=== PATIENT | female | born 2000 | race Hispanic/Latino ===

== ENCOUNTER 2022-08-24 10:54 | Inpatient (IN) | payer MEDICAID ==
[~2022-08-24] VITALS: Ht 154.9 cm; Wt 72.3 kg
[2022-08-24 11:33] LABS: BASOPHILS % (AUTO) 0.5 % (0.0-5.0); EOSINOPHILS % (AUTO) 1.2 % (0.0-8.0); HEMATOCRIT 40.2 % (36-48); LYMPHOCYTES % (AUTO) 8.6 % (21.0-51.0); MEAN CORPUSCULAR HEMOGLOBIN 27.2 pg (27.0-33.0); MEAN CORPUSCULAR HGB CONC 33.6 g/dL (32.0-36.0); MONOCYTES % (AUTO) 6.9 % (3.0-13.0); NEUTROPHILS % (AUTO) 82.6 % (40.0-77.0); PLATELET COUNT (AUTO) 213 K/uL (130-400); RED BLOOD CELL COUNT(AUTO) 4.96 MIL/uL (4.00-5.50); RED CELL DISTRIBUTION WIDTH 18.8 % (11.0-15.5); WHITE BLOOD COUNT (AUTO) 5.8 K/uL (4.8-10.8)
[2022-08-24 11:42] LABS: CREATININE 0.8 mg/dL (0.5-1.5)
[2022-08-24 11:43] LABS: INR 1.52 (0.85-1.15); PROTHROMBIN TIME 16.2 SEC (9.6-11.6)
[2022-08-24 11:44] LABS: PARTIAL THROMBOPLASTIN TIME 28.2 SEC (26.3-35.5)
[2022-08-24 11:49] LABS: ALBUMIN 3.5 g/dL (3.5-5.0); TOTAL PROTEIN, SERUM 6.8 g/dL (6.0-8.3)
[2022-08-24] MEDS ORDERED: METOPROLOL TARTRATE 1 MG/ML 5ML VIAL IV ONE ×3 (12:00→13:30)
[2022-08-24] MEDS ORDERED: ACETAMINOPHEN 500 MG TABLET ONE (12:45)
[2022-08-24] MEDS ORDERED: ACETAMINOPHEN 500 MG TABLET PO ONE (13:00)
[2022-08-24] MEDS ORDERED: POTASSIUM CHLORIDE 20MEQ/100ML 100 ML IV PRN (14:00)
[2022-08-24] MEDS ORDERED: LACTULOSE 20 GM/30 ML UDCUP PO PRN (14:00)
[2022-08-24] MEDS ORDERED: METOPROLOL TARTRATE 50 MG TAB PO ONE (14:00)
[2022-08-24] MEDS ORDERED: NITROGLYCERIN 0.4 MG SL TAB SL PRN (14:00)
[2022-08-24] MEDS ORDERED: LIDOCAINE HCL-MPF 1% 2ML VIAL IV PRN (14:00)
[2022-08-24] MEDS ORDERED: GUAIFENESIN-DM 200/20 MG 10 ML PO PRN (14:00)
[2022-08-24] MEDS ORDERED: DiphenhydrAMINE HCL 50 MG/ML VIAL IV PRN (14:00)
[2022-08-24] MEDS ORDERED: ONDANSETRON 4MG INJ IV PRN (14:00)
[2022-08-24] MEDS ORDERED: DIPHENHYDRAMINE HCL 25 MG CAPSULE PO PRN (14:00)
[2022-08-24] MEDS ORDERED: POTASSIUM CHLORIDE 10% ELIXIR 20 MEQ/15 ML UDCUP PO PRN (14:00)
[2022-08-24] MEDS ORDERED: MAG/ALUM/SIMETH 30 ML UDCUP PO PRN (14:00)
[2022-08-24] MEDS ORDERED: ACETAMINOPHEN 325 MG TAB PO PRN ×2 (14:00)
[2022-08-24] MEDS ORDERED: POTASSIUM BICARB/CIT AC 25 MEQ TABLET.EFF PO ONE (14:00)
[2022-08-24] MEDS: MAGNESIUM 2GM PREMIX 50ML 50 ML IV PRN (14:40)
[2022-08-24] MEDS ORDERED: SOTA120T PO (17:04)
[2022-08-24] MEDS ORDERED: GUAN1TAB29 PO (17:04)
[2022-08-24] MEDS ORDERED: FERR-72 PO (17:04)
[2022-08-24] MEDS ORDERED: WARF3TAB59 PO (17:04)
[2022-08-24] MEDS ORDERED: NORE5TAB7 PO (17:04)
[2022-08-24] MEDS: METOPROLOL TARTRATE 25 MG TAB PO SCH (20:35)
[2022-08-24] MEDS: SOTALOL HCL 80 MG TABLET PO SCH (20:35)
[2022-08-24] MEDS: FAMOTIDINE 20MG TAB PO SCH (20:35)
[2022-08-24] MEDS ORDERED: FAMOTIDINE 20MG VIAL IV PRN (21:00)
[2022-08-25] VITALS (7 sets, daily range): BP systolic 104–166; BP diastolic 56–89
[2022-08-25 05:52] LABS: BASOPHILS % (AUTO) 0.5 % (0.0-5.0); EOSINOPHILS % (AUTO) 1.6 % (0.0-8.0); HEMATOCRIT 38.5 % (36-48); LYMPHOCYTES % (AUTO) 30.2 % (21.0-51.0); MEAN CORPUSCULAR HEMOGLOBIN 27.2 pg (27.0-33.0); MEAN CORPUSCULAR HGB CONC 32.7 g/dL (32.0-36.0); MONOCYTES % (AUTO) 15.7 % (3.0-13.0); NEUTROPHILS % (AUTO) 51.7 % (40.0-77.0); PLATELET COUNT (AUTO) 230 K/uL (130-400); RED BLOOD CELL COUNT(AUTO) 4.64 MIL/uL (4.00-5.50); RED CELL DISTRIBUTION WIDTH 19.5 % (11.0-15.5); WHITE BLOOD COUNT (AUTO) 3.8 K/uL (4.8-10.8)
[2022-08-25 06:14] LABS: CREATININE 0.7 mg/dL (0.5-1.5); MAGNESIUM 2.1 mg/dL (1.80-2.40); PHOSPHORUS 3.8 mg/dL (2.5-4.9); POTASSIUM 3.9 mmol/L (3.5-5.1)
[2022-08-25] MEDS: METOPROLOL TARTRATE 25 MG TAB PO SCH ×2 (08:37→20:36)
[2022-08-25] MEDS: FAMOTIDINE 20MG TAB PO SCH ×2 (08:37→20:35)
[2022-08-25] MEDS: SOTALOL HCL 80 MG TABLET PO SCH ×3 (08:38→20:36)
[2022-08-25] MEDS ORDERED: ENOXAPARIN SODIUM 30 MG/0.3 ML SQ SCH (09:00)
[2022-08-25] MEDS ORDERED: ENOXAPARIN SODIUM 80 MG/0.8 ML SQ SCH (10:38)
[2022-08-25] MEDS ORDERED: ENOXAPARIN SODIUM 60 MG/0.6 ML SQ SCH (12:00)
[2022-08-25] MEDS: WARFARIN SODIUM 1 MG TAB PO SCH (17:49)
[2022-08-25] MEDS: ENOXAPARIN SODIUM 80 MG/0.8 ML SQ SCH (20:36)
[2022-08-25] MEDS: VERAPAMIL HCL 80 MG TABLET PO SCH (21:32)
[2022-08-26] VITALS (8 sets, daily range): BP systolic 97–143; BP diastolic 44–100
[2022-08-26 04:13] LABS: BASOPHILS % (AUTO) 0.7 % (0.0-5.0); EOSINOPHILS % (AUTO) 1.7 % (0.0-8.0); HEMATOCRIT 39.3 % (36-48); LYMPHOCYTES % (AUTO) 26.4 % (21.0-51.0); MEAN CORPUSCULAR HEMOGLOBIN 27.3 pg (27.0-33.0); MEAN CORPUSCULAR HGB CONC 32.3 g/dL (32.0-36.0); MEAN CORPUSCULAR VOLUME 84.5 fL (80-100); MONOCYTES % (AUTO) 10.8 % (3.0-13.0); NEUTROPHILS % (AUTO) 60.2 % (40.0-77.0); PLATELET COUNT (AUTO) 225 K/uL (130-400); RED BLOOD CELL COUNT(AUTO) 4.65 MIL/uL (4.00-5.50); WHITE BLOOD COUNT (AUTO) 4.2 K/uL (4.8-10.8)
[2022-08-26 04:32] LABS: CREATININE 0.7 mg/dL (0.5-1.5); MAGNESIUM 1.5 mg/dL (1.80-2.40); PHOSPHORUS 4.2 mg/dL (2.5-4.9); POTASSIUM 3.4 mmol/L (3.5-5.1)
[2022-08-26 04:41] LABS: INR 1.23 (0.85-1.15); PROTHROMBIN TIME 13.3 SEC (9.6-11.6)
[2022-08-26] MEDS: VERAPAMIL HCL 80 MG TABLET PO SCH ×3 (05:25→23:15)
[2022-08-26] MEDS: MAGNESIUM 2GM PREMIX 50ML 50 ML IV PRN (05:55)
[2022-08-26] MEDS ORDERED: NON-FORMULARY MEDICATION 1 EACH (Ferrous Sulfate 325 MG) PO SCH (09:00)
[2022-08-26] MEDS ORDERED: WARFARIN SODIUM 3.5 MG PO SCH (09:00)
[2022-08-26] MEDS: ENOXAPARIN SODIUM 80 MG/0.8 ML SQ SCH ×2 (09:24→20:23)
[2022-08-26] MEDS: FAMOTIDINE 20MG TAB PO SCH ×2 (09:25→20:23)
[2022-08-26] MEDS: SOTALOL HCL 80 MG TABLET PO SCH ×3 (09:25→20:23)
[2022-08-26] MEDS: FERROUS SULFATE 325 MG TABLET.DR PO SCH (09:25)
[2022-08-26] MEDS: METOPROLOL TARTRATE 25 MG TAB PO SCH ×2 (09:25→20:22)
[2022-08-26] MEDS: KCL 20 MEQ ERTAB PO PRN (09:42)
[2022-08-26] MEDS: WARFARIN SODIUM 1 MG TAB PO SCH (16:32)
[2022-08-27 00:21] VITALS: BP 128/68
[2022-08-27 03:21] VITALS: BP 140/69
[2022-08-27 03:39] LABS: BASOPHILS % (AUTO) 0.8 % (0.0-5.0); EOSINOPHILS % (AUTO) 2.1 % (0.0-8.0); HEMATOCRIT 39.8 % (36-48); MEAN CORPUSCULAR HEMOGLOBIN 27.4 pg (27.0-33.0); MEAN CORPUSCULAR HGB CONC 32.4 g/dL (32.0-36.0); MEAN CORPUSCULAR VOLUME 84.7 fL (80-100); MONOCYTES % (AUTO) 12.8 % (3.0-13.0); PLATELET COUNT (AUTO) 233 K/uL (130-400); RED CELL DISTRIBUTION WIDTH 18.6 % (11.0-15.5); WHITE BLOOD COUNT (AUTO) 3.8 K/uL (4.8-10.8)
[2022-08-27 03:52] LABS: CREATININE 0.7 mg/dL (0.5-1.5); POTASSIUM 3.8 mmol/L (3.5-5.1)
[2022-08-27] MEDS: KCL 20 MEQ ERTAB PO PRN (05:09)
[2022-08-27] MEDS: VERAPAMIL HCL 80 MG TABLET PO SCH (06:30)
[2022-08-27 06:42] LABS: INR 1.21 (0.85-1.15)
[2022-08-27 06:43] LABS: PARTIAL THROMBOPLASTIN TIME 35.1 SEC (26.3-35.5)
[2022-08-27 07:54] VITALS: BP 96/51
[2022-08-27] MEDS: METOPROLOL TARTRATE 25 MG TAB PO SCH (08:39)
[2022-08-27] MEDS: FERROUS SULFATE 325 MG TABLET.DR PO SCH (08:39)
[2022-08-27] MEDS: FAMOTIDINE 20MG TAB PO SCH (08:40)
[2022-08-27] MEDS: SOTALOL HCL 80 MG TABLET PO SCH (08:40)
[2022-08-27] MEDS: ENOXAPARIN SODIUM 80 MG/0.8 ML SQ SCH (08:40)
[2022-08-27 08:43] VITALS: BP 125/55
[2022-08-27] MEDS ORDERED: WARFARIN SODIUM 5 MG TAB PO SCH (11:30)
[2022-08-27] MEDS ORDERED: VERA240T95 PO (11:54)
[2022-08-27] MEDS ORDERED: METO25 PO (12:00)
[2022-08-27 12:09] VITALS: BP 127/44
[2022-08-27] MEDS ORDERED: WARFARIN SODIUM 2 MG TAB PO SCH (16:00)
[2022-08-28] MEDS ORDERED: SULF1TAB42 PO (23:20)
[2022-08-28] MEDS ORDERED: NITR100C4 PO (23:21)
[2022-08-28] MEDS ORDERED: PHEN-847 PO (23:42)
== END 2022-08-27 14:05 | disposition home or self-care (01) | DRG 201 ==
LOC: EDH 10:54 → EDHIP 10:55 → 2AH 23:27
PROVIDERS: ADMIT Internal Medicine; ATTEND Internal Medicine
DX: I47.1 Supraventricular tachycardia (principal); I24.8 Other forms of acute ischemic heart disease; I48.91 Unspecified atrial fibrillation; E83.42 Hypomagnesemia; R55 Syncope and collapse; E87.6 Hypokalemia; I35.0 Nonrheumatic aortic (valve) stenosis; Z79.01 Long term (current) use of anticoagulants; Z86.718 Personal history of other venous thrombosis and embolism; Z86.73 Personal history of transient ischemic attack (TIA), and cerebral infarction without residual deficits
CPT/HCPCS: 36415; 71045; 80048; 80053; 81025; 83735; 83880; 84100; 84443; 84484; 85025; 85610; 85730; 87040; 93005; 93306; 93970; 99291; G0378; J1650; J3475; J3480; J3490

== ENCOUNTER 2022-08-28 17:43 | Emergency (ER) | payer MEDICAID ==
[~2022-08-28] VITALS: Ht 154.9 cm; Wt 71.7 kg
[~2022-08-28 17:43] MED LIST: FERR-72 PO; GUAN1TAB29 PO; METO25 PO; NORE5TAB7 PO; SOTA120T PO; VERA240T95 PO
[2022-08-28 19:07] LABS: BASOPHILS % (AUTO) 0.2 % (0.0-5.0); EOSINOPHILS % (AUTO) 0.1 % (0.0-8.0); HEMATOCRIT 43.7 % (36-48); LYMPHOCYTES % (AUTO) 5.3 % (21.0-51.0); MEAN CORPUSCULAR HEMOGLOBIN 27.2 pg (27.0-33.0); MEAN CORPUSCULAR HGB CONC 31.6 g/dL (32.0-36.0); MEAN CORPUSCULAR VOLUME 86.2 fL (80-100); MONOCYTES % (AUTO) 3.6 % (3.0-13.0); NEUTROPHILS % (AUTO) 90.6 % (40.0-77.0); PLATELET COUNT (AUTO) 260 K/uL (130-400); RED BLOOD CELL COUNT(AUTO) 5.07 MIL/uL (4.00-5.50); RED CELL DISTRIBUTION WIDTH 18.7 % (11.0-15.5); WHITE BLOOD COUNT (AUTO) 8.6 K/uL (4.8-10.8)
[2022-08-28 20:24] LABS: CREATININE 1.1 mg/dL (0.5-1.5); POTASSIUM 5.4 mmol/L (3.5-5.1); TOTAL PROTEIN, SERUM 7.4 g/dL (6.0-8.3)
[2022-08-28 20:55] LABS: INR 1.4 (0.85-1.15)
[2022-08-28] MEDS ORDERED: 0.9%NACL 1000ML 1,000 ML IV ONE (21:00)
[2022-08-28 23:06] LABS: APPEARANCE,URINE CLOUDY (CLEAR); BILIRUBIN,URINE NEGATIVE (NEGATIVE); GLUCOSE, URINE (UA) NEGATIVE (NEGATIVE); KETONES,URINE 40 mg/dL (NEGATIVE); LEUKOCYTE ESTERASE ,URINE 75 Leu/uL (NEGATIVE); NITRATE,URINE NEGATIVE (NEGATIVE); OCCULT BLOOD,URINE LARGE (NEGATIVE); PROTEIN,URINE 70 mg/dL (NEGATIVE); UROBILINOGEN,URINE 6 mg/dL (0.2-1.0)
[2022-08-28 23:13] LABS: HCG,QUALITATIVE URINE NEGATIVE (NEGATIVE)
[2022-08-28 23:14] LABS: COLOR,URINE AMBER (YELLOW)
[2022-08-28] MEDS ORDERED: SULF1TAB42 PO (23:20)
[2022-08-28] MEDS ORDERED: NITR100C4 PO (23:21)
[2022-08-28 23:30] LABS: BACTERIA,URINE RARE /HPF (None Seen); CALCIUM OXALATE CRYSTALS,UR RARE /LPF (None Seen); MUCUS,URINE RARE LPF (None Seen); SQUAMOUS EPITHELIAL CELL,UR FEW /HPF (0-2)
[2022-08-28] MEDS ORDERED: PHEN-847 PO (23:42)
[2022-08-29] VITALS: BP 121/72
== END 2022-08-29 00:22 | disposition home or self-care (01) ==
LOC: EDH 17:43
DX: N39.0 Urinary tract infection, site not specified (principal); I25.10 Atherosclerotic heart disease of native coronary artery without angina pectoris; Z95.1 Presence of aortocoronary bypass graft; Z79.01 Long term (current) use of anticoagulants; Z79.899 Other long term (current) drug therapy; Z88.8 Allergy status to other drugs, medicaments and biological substances; Z86.73 Personal history of transient ischemic attack (TIA), and cerebral infarction without residual deficits; Z20.822 Contact with and (suspected) exposure to COVID-19
CPT/HCPCS: 99285; 96360; 71045; 87635; 84484 ×2; 80053; 85025; 85610; 87088; 87880; 87804 ×2; 81001; 81025; 36415; 93005 ×3; C9803; J7030